=== PATIENT | female | born 1985 | race African-American/Black ===

== ENCOUNTER 2021-12-23 15:24 | Emergency (ER) | payer SELFPAY ==
[2021-12-23 15:53] VITALS: BP 128/88; PULSE 77; TEMP 97.8; BMI 24.7
[2021-12-23] MEDS ORDERED: ACETAMINOPHEN 1000 MG/100 ML BAG IVPB ONE (16:46)
[2021-12-23] MEDS ORDERED: ACETAMINOPHEN INJECTION 100 ML IVPB ONE (16:56)
[2021-12-23 18:00] LABS: BASO % 0.4 % (0-2.0); EOS % 0.9 % (0-4.5); HEMATOCRIT 33.9 % (32.4-45.2); HEMOGLOBIN 11.1 GM/dL (10.7-15.3); LYMPH % 27.3 % (8-40); MCH 23.3 pg (25.7-33.7); MCHC 32.6 g/dl (32.0-36.0); MEAN CELL VOLUME 71.3 fl (80-96); MONO % 4.5 % (3.8-10.2); NEUT % 66.9 % (42.8-82.8); PLATELET COUNT 175 10^3/uL (134-434); RBC 4.75 M/mm3 (3.60-5.2); RDW 14.6 % (11.6-15.6); WHITE BLOOD COUNT 6.5 K/mm3 (4.0-10.0)
[2021-12-23 18:02] LABS: PH,URINE 7.5 (5.0-8.0); URINE APPEARANCE CLEAR; URINE BILIRUBIN NEGATIVE (NEGATIVE); URINE COLOR YELLOW; URINE GLUCOSE (UA) NEGATIVE (NEGATIVE); URINE KETONE TRACE (NEGATIVE); URINE LEUK ESTERASE NEGATIVE (NEGATIVE); URINE NITRITE NEGATIVE (NEGATIVE); URINE PROTEIN NEGATIVE (NEGATIVE); URINE UROBILINOGEN 0.2 mg/dL (0.2-1.0)
[2021-12-23 18:03] LABS: HCG,QUALITATIVE URINE Positive
[2021-12-23 18:28] LABS: CALCIUM 8.9 mg/dL (8.5-10.1)
[2021-12-23 18:29] LABS: ALBUMIN 4.2 g/dl (3.4-5.0); BLOOD UREA NITROGEN 6.9 mg/dL (7-18)
[2021-12-23 18:32] LABS: CREATININE 0.6 mg/dL (0.55-1.3)
[2021-12-23 18:34] LABS: BILIRUBIN,TOTAL 0.7 mg/dL (0.2-1); TOT PROT 7.6 g/dl (6.4-8.2)
== END 2021-12-23 20:45 | disposition home or self-care (01) ==
LOC: JER 15:24
PROC: 3E0333Z Introduction of Anti-inflammatory into Peripheral Vein, Percutaneous Approach (ICD-10-PCS; principal; 2021-12-23)
DX: O20.0 Threatened abortion (principal); Z3A.01 Less than 8 weeks gestation of pregnancy
CPT/HCPCS: 36415; 76817-TC; 80053; 81003; 84702; 84703; 85025; 86850; 86900; 86901; 87086; 99284-25

== ENCOUNTER 2021-12-25 18:36 | Emergency (ER) | payer SELFPAY ==
[2021-12-25 18:47] VITALS: BP 126/85; PULSE 81; TEMP 98.6; BMI 25.2
[2021-12-25] MEDS ORDERED: ACETAMINOPHEN 500 MG TABLET (FP) ONE (21:42)
[2021-12-25] MEDS ORDERED: ACETAMINOPHEN 500 MG TABLET (FP) PO ONE (21:47)
[2021-12-25] MEDS ORDERED: KETOROLAC TROMETHAMINE 30 MG/1 ML VIAL IM ONE (22:47)
[2021-12-25] MEDS ORDERED: KETOROLAC TROMETHAMINE 30 MG/1 ML VIAL ONE (22:48)
== END 2021-12-25 22:57 | disposition home or self-care (01) ==
LOC: JER 18:36 → JERFT 18:36
PROC: 3E023GC Introduction of Other Therapeutic Substance into Muscle, Percutaneous Approach (ICD-10-PCS; principal; 2021-12-25)
DX: O03.4 Incomplete spontaneous abortion without complication (principal); Z3A.01 Less than 8 weeks gestation of pregnancy
CPT/HCPCS: 36415; 76817-TC; 84702; 99284-25